=== PATIENT | female | born 1995 | race Caucasian/White ===

== ENCOUNTER 2022-01-03 10:18 | Emergency (ER) | payer MEDICAID ==
[~2022-01-03] VITALS: Ht 165.1 cm; Wt 81.6 kg
[2022-01-03 10:45] VITALS: BP 136/80
[2022-01-03 13:55] LABS: *AMPHETAMINES SCREEN URINE NEGATIVE (NEGATIVE); *BARBITURATES SCREEN URINE NEGATIVE (NEGATIVE); *BENZODIAZEPINES SCREEN URINE NEGATIVE (NEGATIVE); *COCAINE SCREEN URINE NEGATIVE (NEGATIVE); CANNABINOID URINE SCREEN NEGATIVE (NEGATIVE); METHADONE URINE SCREEN NEGATIVE (NEGATIVE); OPIATES URINE SCREEN NEGATIVE (NEGATIVE); PHENCYCLIDINE URINE SCREEN NEGATIVE (NEGATIVE)
== END 2022-01-03 12:31 | disposition left against medical advice (07) ==
LOC: ER 11:15
DX: T74.91XA Unspecified adult maltreatment, confirmed, initial encounter (principal); X58.XXXA Exposure to other specified factors, initial encounter; R11.0 Nausea
CPT/HCPCS: 80305; 81025; 99283

== ENCOUNTER 2023-03-10 14:20 | Emergency (ER) | payer MEDICAID, OTHER ==
[~2023-03-10] VITALS: Ht 165.1 cm; Wt 70.0 kg
[2023-03-10 14:24] VITALS: BP 116/78; PULSE 96; RESP 16; O2SAT 98
[2023-03-10] MEDS ORDERED: ACETAMINOPHEN 325MG TABLET PO STA (14:27)
[2023-03-10] MEDS ORDERED: IBUP-2029 MT (17:10)
[2023-03-10] MEDS ORDERED: ACETAMINOPHEN 325MG TABLET PO NR (17:15)
[2023-03-10 17:19] VITALS: TEMP 98
== END 2023-03-10 18:13 | disposition home or self-care (01) ==
LOC: ER 14:20
DX: S09.90XA Unspecified injury of head, initial encounter (principal); V49.49XA Driver injured in collision with other motor vehicles in traffic accident, initial encounter; Y93.89 Activity, other specified; Y92.89 Other specified places as the place of occurrence of the external cause; Y99.8 Other external cause status
CPT/HCPCS: 71045; 99284